=== PATIENT | male | born 1960 | race Caucasian/White ===

== ENCOUNTER 2019-08-06 18:25 | Emergency (ER) | payer SELFPAY ==
[~2019-08-06] VITALS: Ht 185.4 cm; Wt 65.8 kg
[2019-08-06 18:28] VITALS: BP_SYST 119
--- NOTE | 2019-08-06 18:35 | NUR ---
Patient to ER bed H1 to gown for evaluation. Side rails up.
--- NOTE | 2019-08-06 18:40 | NUR ---
Pt brought via BLS, A&Ox3, pt presents to ER with neck and lower back pain, pt states he was tacle 2 days ago by police and pain started, pt ambulatory, skin pink and warm, cap refill <3, VSS, respirations even and unlabored, no open wounds noted.
--- NOTE | 2019-08-06 19:30 | NUR ---
Dr Perkins at bedside examining patient
[2019-08-06] MEDS ORDERED: MORPHINE 2 MG/ML INJ. SYRINGE IM ONE (20:45)
--- NOTE | 2019-08-06 21:17 | NUR ---
Pt ambulated to restroom at this time, A&Ox4.
--- NOTE | 2019-08-06 21:19 | NUR ---
Pt off the unit for CT
--- NOTE | 2019-08-06 21:27 | NUR ---
Report given to Jennifer ABRAMS
--- NOTE | 2019-08-06 22:36 | NUR ---
Patient given written and verbal discharge instructions and verbalizes understanding. ER MD discussed with patient the results and treatment provided. Patient in stable condition. ID arm band removed. Rx of Naprosyn and Flexeril given. Patient educated on pain management and to follow up with PMD. Pain Scale 0/10. Opportunity for questions provided and answered. Medication side effect fact sheet provided. Addendum: 08/06/19 at 2242 by [facility]RI[facility] Awaiting for ambulance.
--- NOTE | 2019-08-06 23:40 | NUR ---
Patient resting comfortably. Sitter at bedside. Patient appears sleeping with no signs of acute distress. Will continue to follow up and monitor.
[2019-08-07 00:45] VITALS: BP_SYST 115
--- NOTE | 2019-08-07 00:45 | NUR ---
Patient given written and verbal discharge instructions and verbalizes understanding. ER MD discussed with patient the results and treatment provided. Patient in stable condition. ID arm band removed. Rx not given. Patient educated on pain management and to follow up with PMD. Pain Scale 3/10. Sent with [facility] from [facility], and [facility]. Opportunity for questions provided and answered. Medication side effect fact sheet provided. Patient refusing to sign discharge papers. Copies provided to EMS crew, and copy of psych hold was kept on chart.
== END 2019-08-07 00:45 | disposition home or self-care (01) ==
LOC: SED 18:25
DX: S09.90XA Unspecified injury of head, initial encounter (principal); M54.5 Low back pain; Z88.0 Allergy status to penicillin; W22.8XXA Striking against or struck by other objects, initial encounter; Y93.89 Activity, other specified; Y92.89 Other specified places as the place of occurrence of the external cause; Y99.8 Other external cause status
CPT/HCPCS: 70450; 72125; 72128; 72131; 96372; 99284; J2270